=== PATIENT | male | born 1985 ===

== ENCOUNTER 2018-10-23 08:03 | Emergency (ER) | payer SELFPAY ==
[2018-10-23] MEDS ORDERED: KETOROLAC 30 MG/ML INJ ONE (08:28)
[2018-10-23] MEDS ORDERED: NA CHLORIDE 0.9% 1,000 ML ONE (08:28)
[2018-10-23 08:37] LABS: Absolute Lymphocytes (CBC) 1.2 K/uL (0.7-4.9); Absolute Monocytes 0.5 K/uL (0.1-1.3); Absolute Neutrophil 4.6 K/uL (1.8-8.0); Basophils % 0.7 % (0-1.3); Eosinophils % 2.1 % (0-4.4); Hematocrit 43.4 % (39.6-49.0); Lymphocytes % 18.2 % (15.3-44.8); MPV 6.6 fL (7.6-11.3); Monocytes % 7.6 % (3.3-12.3); RBC Red Blood Cell Count 4.72 M/uL (4.33-5.43)
[2018-10-23 08:48] LABS: ALT/SGPT 19 U/L (12-78); AST/SGOT 13 U/L (15-37); Albumin 3.7 g/dL (3.4-5.0); Alkaline Phosphatase 88 U/L (45-117); BUN Blood Urea Nitrogen 14 mg/dL (7-18); Bicarbonate 24 mmol/L (21-32); Bilirubin Direct 0.2 mg/dL (0-0.2); Bilirubin Total 0.8 mg/dL (0.2-1.0); Glucose Level 87 mg/dL (74-106); Potassium 4.1 mmol/L (3.5-5.1); Protein, Total 7.1 g/dL (6.4-8.2); Sodium Level 142 mmol/L (136-145)
--- NOTE | 2018-10-23 09:22 | RAD REPORT ---
EXAM DESCRIPTION: CT - Stone Protocol - 10/23/2018 8:35 am CLINICAL HISTORY: Right flank pain COMPARISON: None. TECHNIQUE: Axial 5 mm thick images were obtained without oral or IV contrast. The crtex-by-eypb span s the entirety of the system including uppermost abdomen and lung bases. All CT scans are performed using dose optimization technique as appropriate and may include automated exposure control or mA/KV adjustment according to patient size. FINDINGS: No hydronephrosis is present and no obstructing ureteral calculi. No suspicious renal mass es. Isodense masses and pyelonephritis are not excluded on a stone protocol CT scan. No urinary bladd er suspicious finding. No significant adrenal finding. Imaged portions of the liver, spleen and pancreas show no suspicious findings on non-contrast imaging . No gallbladder or biliary tree abnormality identified. No suspicious bowel findings. Moderate stool volume present in the colon. No hernia, mass or bulky lymphadenopathy noted. No free air, free fluid or inflammatory stranding. No significant bony abnormality. IMPRESSION: Negative CT stone protocol study. Isodense masses and pyelonephritis are not excluded on stone protocol technique.
--- NOTE | 2018-10-23 09:31 | ER ---
Nurse's Notes [facility] Name: Trace Garza Age: 33 yrs Sex: Male : 1985 Arrival Date: 10/23/2018 Time: 08:05 Bed 5 Private MD: Diagnosis: Low back pain;Constipation Presentation: 10/23 08:05 Presenting complaint: Patient states: Pt arrived in police custody, c/o R flank pain ph that began last night, also reports bloody stools and blood in urine, denies N/V or fever. Transition of care: patient was not received from another setting of care. Onset of symptoms was October 23, 2018. Risk Assessment: Do you want to hurt yourself or someone else? Patient reports no desire to harm self or others. Initial Sepsis Screen: Does the patient meet any 2 criteria? No. Patient's initial sepsis screen is negative. Does the patient have a suspected source of infection? No. Patient's initial sepsis screen is negative. Care prior to arrival: None. 08:05 Method Of Arrival: Law Enforcement: [employer] ph 08:05 Acuity: YAKELIN 3 ph Historical: - Allergies: 08:12 No Known Allergies; ph - PMHx: 08:12 Anxiety; ph - PSHx: 08:12 None; ph - Immunization history:: Adult Immunizations unknown. - Social history:: Smoking status: Patient uses tobacco products, smokes one pack cigarettes per day. - Ebola Screening: : No symptoms or risks identified at this time. Screenin:13 Abuse screen: Denies threats or abuse. Denies injuries from another. Nutritional ph screening: No deficits noted. Tuberculosis screening: No symptoms or risk factors identified. Fall Risk None identified. Assessment: 08:28 General: Appears in no apparent distress. uncomfortable, Behavior is cooperative, ph anxious, fussy, restless, Denies fever. Pain: Complains of pain in right low back Pain radiates to right lower quadrant Noted to be grimacing, guarding, restless. Neuro: Level of Consciousness is awake, alert, obeys commands, Oriented to person, place, time, situation. Cardiovascular: Capillary refill < 3 seconds in bilateral fingers Patient's skin is warm and dry. Respiratory: Airway is patent Respiratory effort is even, unlabored, Respiratory pattern is regular, symmetrical. GI: Reports lower abdominal pain, bloody stool, Patient currently denies diarrhea, nausea, vomiting. : Reports blood in urine Denies burning with urination, inability to void. Derm: Skin is intact, Skin is pink, warm \T\ dry. Musculoskeletal: Circulation, motion, and sensation intact. Range of motion: intact in all extremities. 08:33 Reassessment: Pt taken to CT via wheelchair, accompanied by PD. ph 09:30 Reassessment: Patient appears in no apparent distress at this time. Patient and/or ph family updated on plan of care and expected duration. Pain level reassessed. Patient is alert, oriented x 3, equal unlabored respirations, skin warm/dry/pink. 10:26 Reassessment: Patient appears in no apparent distress at this time. Patient and/or ph family updated on plan of care and expected duration. Pain level reassessed. Patient is alert, oriented x 3, equal unlabored respirations, skin warm/dry/pink. Pt d/c in police custody. Vital Signs: 08:09 BP 127 / 84; Pulse 89; Resp 18; Temp 98.5; Pulse Ox 100% on R/A; Weight 74.84 kg; ph Height 5 ft. 6 in. (167.64 cm); Pain 6/10; 09:30 BP 141 / 78; Pulse 84; Resp 16; Pulse Ox 98% on R/A; ph 10:28 BP 137 / 89; Pulse 87; Resp 18; Temp 98.0; Pulse Ox 99% on R/A; ph 08:09 Body Mass Index 26.63 (74.84 kg, 167.64 cm) ph ED Course: 08:05 Patient arrived in ED. ph 08:05 Jimmy Corrigan NP is PHCP. pm1 08:05 Milton Mayen MD is Attending Physician. pm1 08:07 Triage completed. ph 08:13 Arm band placed on. ph 08:13 Patient has correct armband on for positive identification. Bed in low position. Call ph light in reach. Side rails up X 1. Pulse ox on. NIBP on. 08:20 Inserted saline lock: 18 gauge in right forearm, using aseptic technique. ph 08:33 No provider procedures requiring assistance completed. ph 08:36 CT Stone Protocol In Process Unspecified. EDMS 08:41 CT completed. Patient tolerated procedure well. Patient moved back from CT. sj 10:25 Paige Stone, RN is Primary Nurse. ph 10:27 IV discontinued, intact, bleeding controlled, No redness/swelling at site. Pressure ph dressing applied. Administered Medications: 08: Drug: NS 0.9% 1000 ml Route: IV; Rate: 1000 ml; Site: right forearm; ph 10:27 Follow up: Response: No adverse reaction; IV Status: Completed infusion; IV Intake: ph 1000ml 08: Drug: TORadol 30 mg Route: IVP; Site: right forearm; ph 09:00 Follow up: Response: No adverse reaction; Pain is decreased ph Intake: 10:27 IV: 1000ml; Total: 1000ml. ph Outcome: :30 Discharge ordered by . pm1 10: Discharged to Law Enforcement ph 10: Condition: good 10: Discharge instructions given to patient, Instructed on discharge instructions, follow up and referral plans. medication usage, Demonstrated understanding of instructions, follow-up care, medications, Prescriptions given X 2. 10:28 Patient left the ED. hb Signatures: Dispatcher [employer] Eva Beckman Paige Stone, RN RN ph Jimmy Corrigan, [employer] NURSE [employer] pm1 Dara Zarate RN RN hb
--- NOTE | 2018-10-23 09:31 | EDPHYS ---
Physician Documentation [facility] Name: Trace Garza Age: 33 yrs Sex: Male : 1985 Arrival Date: 10/23/2018 Time: 08:05 Bed 5 Private MD: ED Physician Milton Mayen HPI: 10/23 08:15 This 33 yrs old Male presents to ER via Law Enforcement with complaints of Flank Pain. pm1 08:15 The patient complains of pain in the right low back. The pain does not radiate. Onset: pm1 The symptoms/episode began/occurred today, a few hours ago after being arrested by police . Modifying factors: The symptoms are alleviated by nothing. the symptoms are aggravated by nothing. Associated signs and symptoms: Pertinent positives: constipation, Pertinent negatives: diarrhea, dysuria, fever, nausea, vomiting. Severity of pain: in the emergency department the pain is actually worse. The patient has not experienced similar symptoms in the past. The patient has been recently seen by a physician: the patient's primary care provider, given prescription refill for his anxiety medications. Patient was at the hospital visiting his son and was arrested for unpaid tickets. He started experiencing right lower back pain and reported hematuria. Had labs drawn and was discharged to the officers. No CT performed and patient believes that he might have kidney stones. Historical: - Allergies: 08:12 No Known Allergies; ph - PMHx: 08:12 Anxiety; ph - PSHx: 08:12 None; ph - Immunization history:: Adult Immunizations unknown. - Social history:: Smoking status: Patient uses tobacco products, smokes one pack cigarettes per day. - Ebola Screening: : No symptoms or risks identified at this time. ROS: 08:15 Constitutional: Negative for fever, chills, and weight loss, Eyes: Negative for injury, pm1 pain, redness, and discharge, ENT: Negative for injury, pain, and discharge, Neck: Negative for injury, pain, and swelling, Cardiovascular: Negative for chest pain, palpitations, and edema, Respiratory: Negative for shortness of breath, cough, wheezing, and pleuritic chest pain, Abdomen/GI: Negative for abdominal pain, nausea, vomiting, diarrhea, and constipation. 08:15 MS/Extremity: Negative for injury and deformity, Skin: Negative for injury, rash, and discoloration, Neuro: Negative for headache, weakness, numbness, tingling, and seizure. 08:15 Back: Positive for flank pain, on the right. 08:15 : Positive for hematuria, Negative for burning with urination, difficulty urinating, penile pain, testicular pain Exam: 08:15 Constitutional: This is a well developed, well nourished patient who is awake, alert, pm1 and in no acute distress. Head/Face: Normocephalic, atraumatic. Eyes: Pupils equal round and reactive to light, extra-ocular motions intact. Lids and lashes normal. Conjunctiva and sclera are non-icteric and not injected. Cornea within normal limits. Periorbital areas with no swelling, redness, or edema. ENT: Nares patent. No nasal discharge, no septal abnormalities noted. Tympanic membranes are normal and external auditory canals are clear. Oropharynx with no redness, swelling, or masses, exudates, or evidence of obstruction, uvula midline. Mucous membranes moist. Neck: Trachea midline, no thyromegaly or masses palpated, and no cervical lymphadenopathy. Supple, full range of motion without nuchal rigidity, or vertebral point tenderness. No Meningismus. Chest/axilla: Normal chest wall appearance and motion. Nontender with no deformity. No lesions are appreciated. Cardiovascular: Regular rate and rhythm with a normal S1 and S2. No gallops, murmurs, or rubs. Normal PMI, no JVD. No pulse deficits. Respiratory: Lungs have equal breath sounds bilaterally, clear to auscultation and percussion. No rales, rhonchi or wheezes noted. No increased work of breathing, no retractions or nasal flaring. Abdomen/GI: Soft, non-tender, with normal bowel sounds. No distension or tympany. No guarding or rebound. No evidence of tenderness throughout. Back: No spinal tenderness. No costovertebral tenderness. Full range of motion. Skin: Warm, dry with normal turgor. Normal color with no rashes, no lesions, and no evidence of cellulitis. MS/ Extremity: Pulses equal, no cyanosis. Neurovascular intact. Full, normal range of motion. 08:15 Neuro: Orientation: is normal, Motor: is normal, moves all fours, strength is normal, strength is 5/5 in all extremities. Vital Signs: 08:09 BP 127 / 84; Pulse 89; Resp 18; Temp 98.5; Pulse Ox 100% on R/A; Weight 74.84 kg; ph Height 5 ft. 6 in. (167.64 cm); Pain 6/10; 09:30 BP 141 / 78; Pulse 84; Resp 16; Pulse Ox 98% on R/A; ph 10:28 BP 137 / 89; Pulse 87; Resp 18; Temp 98.0; Pulse Ox 99% on R/A; ph 08:09 Body Mass Index 26.63 (74.84 kg, 167.64 cm) ph MDM: 08:05 Patient medically screened. pm1 09:29 Data reviewed: vital signs. Data interpreted: Pulse oximetry: on room air is 100 %. pm1 Interpretation: normal. Counseling: I had a detailed discussion with the patient and/or guardian regarding: the historical points, exam findings, and any diagnostic results supporting the discharge/admit diagnosis, lab results, radiology results, the need for outpatient follow up, to return to the emergency department if symptoms worsen or persist or if there are any questions or concerns that arise at home. 10/23 08:07 Order name: Basic Metabolic Panel; Complete Time: 08:53 pm1 10/23 08:07 Order name: CBC with Diff; Complete Time: 08:42 pm1 10/23 08:07 Order name: Hepatic Function; Complete Time: 08:53 pm1 10/23 08:07 Order name: CT Stone Protocol; Complete Time: 09:28 pm1 10/23 10:16 Order name: Urine Dipstick--Ancillary (enter results) eb 10/23 08:07 Order name: IV Saline Lock; Complete Time: 08:26 pm1 10/23 08:07 Order name: Labs collected and sent; Complete Time: 08:26 pm1 10/23 08:07 Order name: Urine Dipstick-Ancillary (obtain specimen); Complete Time: 10:28 pm1 Administered Medications: 08: Drug: NS 0.9% 1000 ml Route: IV; Rate: 1000 ml; Site: right forearm; ph 10:27 Follow up: Response: No adverse reaction; IV Status: Completed infusion; IV Intake: ph 1000ml 08: Drug: TORadol 30 mg Route: IVP; Site: right forearm; ph 09:00 Follow up: Response: No adverse reaction; Pain is decreased ph Disposition: 15:27 Co-signature as Attending Physician, Milton Mayen MD I agree with the assessment and kdr plan of care. Disposition: 10/23/18 09:30 Discharged to Home. Impression: Constipation, Low back pain. - Condition is Stable. - Discharge Instructions: Abdominal Pain, Adult, Back Pain, Adult, Constipation, Adult. - Prescriptions for Miralax 17 gram/dose Oral - take 1 packet by ORAL route once daily As needed dilute powder in 8 ounces of water or juice; 7 packet. Diclofenac Sodium 75 mg Oral Tablet Sustained Release - take 1 tablet by ORAL route 2 times per day; 30 tablet. - Medication Reconciliation Form, Thank You Letter, Antibiotic Education, Prescription Opioid Use form. - Follow up: Emergency Department; When: As needed; Reason: Worsening of condition. Follow up: Private Physician; When: 2 - 3 days; Reason: Recheck today's complaints, Continuance of care, Re-evaluation by your physician. - Problem is new. - Symptoms have improved. Signatures: Dispatcher [employer] EDMS Milton Mayen MD MD [facility] Paige Stone RN RN ph Jimmy Corrigan, [employer] MANUFACTURING ENGINEER [employer] pm1 Dara Zarate RN RN Corrections: (The following items were deleted from the chart) 10:15 09:30 10/23/2018 09:30 Discharged to Home. Impression: Low back pain. Condition is pm1 Stable. Forms are Medication Reconciliation Form, Thank You Letter, Antibiotic Education, Prescription Opioid Use. Follow up: Emergency Department; When: As needed; Reason: Worsening of condition. Follow up: Private Physician; When: 2 - 3 days; Reason: Recheck today's complaints, Continuance of care, Re-evaluation by your physician. Problem is new. Symptoms have improved. pm1 10:28 10:15 10/23/2018 09:30 Discharged to Home. Impression: ConstipationLow back pain. hb Condition is Stable. Discharge Instructions: Abdominal Pain, Adult, Back Pain, Adult, Constipation, Adult. Prescriptions for Miralax 17 gram/dose Oral - take 1 packet by ORAL route once daily As needed dilute powder in 8 ounces of water or juice; 7 packet, Diclofenac Sodium 75 mg Oral Tablet Sustained Release - take 1 tablet by ORAL route 2 times per day; 30 tablet. and Forms are Medication Reconciliation Form, Thank You Letter, Antibiotic Education, Prescription Opioid Use. Follow up: Emergency Department; When: As needed; Reason: Worsening of condition. Follow up: Private Physician; When: 2 - 3 days; Reason: Recheck today's complaints, Continuance of care, Re-evaluation by your physician. Problem is new. Symptoms have improved. pm1
[2018-10-23 13:59] LABS: Urine Blood NEGATIVE (NEG); Urine Glucose NEGATIVE (NEG); Urine Protein NEGATIVE (NEG); Urine Specific Gravity 1.025 (1.005-1.030); Urine pH 6.5 (5.0-7.0)
== END 2018-10-23 10:28 | disposition home or self-care (01) ==
LOC: ER 08:03
DX: M54.5 Low back pain (principal); K59.00 Constipation, unspecified; F41.9 Anxiety disorder, unspecified; F17.210 Nicotine dependence, cigarettes, uncomplicated
CPT/HCPCS: 36415; 74176; 76377; 80048; 80076; 81003; 85025; 96361; 96374; 99284; J7030

== ENCOUNTER 2018-10-23 12:19 | Emergency (ER) | payer SELFPAY ==
[2018-10-23] MEDS ORDERED: BUSPIRONE HCL 15 MG TABLET PO ONE (13:00)
--- NOTE | 2018-10-23 14:24 | RAD REPORT ---
EXAM DESCRIPTION: RAD - Hand Right 3 View - 10/23/2018 1:42 pm CLINICAL HISTORY: Right hand pain, blunt force trauma COMPARISON: None. FINDINGS: No fracture confirmed on this study. Fifth metacarpal has a normal appearance. There is no dislocation or periosteal reaction noted. Soft tissue swelling over the dorsum of the hand noted. N o foreign body or air in the soft tissues. IMPRESSION: No fracture or acute bone or joint finding seen.
--- NOTE | 2018-10-23 14:43 | ER ---
Nurse's Notes [facility] Name: Trace Garza Age: 33 yrs Sex: Male : 1985 Arrival Date: 10/23/2018 Time: 12:20 Bed 6 Private MD: Diagnosis: Sprain of other part of wrist and hand Presentation: 10/23 12:21 Presenting complaint: Mental Health Officer. Transition of care: patient was not ph received from another setting of care. Onset of symptoms was October 23, 2018. Risk Assessment: Do you want to hurt yourself or someone else? Patient reports no desire to harm self or others. Initial Sepsis Screen: Does the patient meet any 2 criteria? No. Patient's initial sepsis screen is negative. Does the patient have a suspected source of infection? No. Patient's initial sepsis screen is negative. Care prior to arrival: None. 12:21 Method Of Arrival: Law Enforcement: Lauren BISHOP ph 12:21 Acuity: YAKELIN 3 ph 12:25 Presenting complaint: Pt in custody of [place] PD, found in cell, pt reports experiencing ph severe anxiety and stated to mental health office that he was afraid that he harm himself w/ out his psychiatric/anxiety medications while in [facility], pt then witnessed to have an anxiety attack and punched wall w/ R fist, deformity noted to hand, pt denies suicidal or homicidal ideations at this time. Historical: - Allergies: 12:25 No Known Allergies; ph - PMHx: 12:25 Anxiety; ph - PSHx: 12:25 None; ph - Immunization history:: Adult Immunizations unknown. - Social history:: Smoking status: unknown. - Ebola Screening: : No symptoms or risks identified at this time. Screenin:29 Abuse screen: Denies threats or abuse. Denies injuries from another. Nutritional ph screening: No deficits noted. Tuberculosis screening: No symptoms or risk factors identified. Fall Risk None identified. Assessment: 12:30 General: Appears in no apparent distress. uncomfortable, Behavior is cooperative, ph anxious, restless. Pain: Complains of pain in right hand. Neuro: Level of Consciousness is awake, alert, obeys commands, Oriented to person, place, time, situation, tardive dyskinesia noted. Cardiovascular: Capillary refill < 3 seconds in bilateral fingers Patient's skin is warm and dry. Respiratory: Airway is patent Respiratory effort is even, unlabored, Respiratory pattern is regular, symmetrical. GI: No signs and/or symptoms were reported involving the gastrointestinal system. Derm: Skin is healthy with good turgor, Skin is normal, Bruising that is dark purple, on right hand. Musculoskeletal: Circulation, motion, and sensation intact. Range of motion: intact in all extremities, Swelling present in right hand. 13:00 Reassessment: Patient appears in no apparent distress at this time. Patient and/or ph family updated on plan of care and expected duration. Pain level reassessed. Patient is alert, oriented x 3, equal unlabored respirations, skin warm/dry/pink. Pt provided lunch tray, eating food and tolerating well. 13:45 Reassessment: Patient appears in no apparent distress at this time. Patient and/or ph family updated on plan of care and expected duration. Pain level reassessed. Patient is alert, oriented x 3, equal unlabored respirations, skin warm/dry/pink. Pt resting quietly, tremors and anxiety noted to have improved, states, " I feel so much better after eating." Awaiting medications from pharmacy and xray results. 14:45 Reassessment: Patient appears in no apparent distress at this time. Patient and/or ph family updated on plan of care and expected duration. Pain level reassessed. Patient is alert, oriented x 3, equal unlabored respirations, skin warm/dry/pink. Vital Signs: 12:22 BP 138 / 92; Pulse 66; Resp 22; Temp 98.0; Pulse Ox 98% on R/A; Weight 74.84 kg; Height ph 5 ft. 6 in. (167.64 cm); 13:00 BP 115 / 78; Pulse 74; Resp 18; Pulse Ox 98% on R/A; ph 14:06 BP 110 / 66; Pulse 82; Resp 18; Temp 97.9(O); Pulse Ox 99% on R/A; mh5 12:22 Body Mass Index 26.63 (74.84 kg, 167.64 cm) ph ED Course: 12:20 Patient arrived in ED. ph 12:21 Paige Stone RN is Primary Nurse. ph 12:22 Triage completed. ph 12:24 Rip Russell PA is PHCP. [facility] 12:24 Milton Mayen MD is Attending Physician. jmm 12:30 Patient has correct armband on for positive identification. Bed in low position. Call ph light in reach. Side rails up X 1. Pulse ox on. NIBP on. Warm blanket given. 12:30 Arm band placed on Patient placed in an exam room, on a stretcher. ph 13:39 X-ray completed. Portable x-ray completed in exam room. Patient tolerated procedure mh1 well. 13:42 Hand Right 3 View XRAY In Process Unspecified. EDMS 14:42 Dejon Ashby MD is Referral Physician. jmm 15:15 No provider procedures requiring assistance completed. Patient did not have IV access ph during this emergency room visit. Administered Medications: 13:29 Drug: busPIRone 7.5 mg Route: PO; ph 15:18 Follow up: Response: No adverse reaction ph Outcome: 14:43 Discharge ordered by MD. jmm 15:15 Discharged to home ambulatory. ph 15:15 Condition: good 15:15 Discharge instructions given to patient, Instructed on discharge instructions, follow up and referral plans. Demonstrated understanding of instructions, follow-up care. 15:19 Patient left the ED. ph Signatures: Dispatcher [employer] EDMS Rip Russell PA PA Itzel Rudolph 1 Paige Stone RN RN ph Kenisha Liang 5
--- NOTE | 2018-10-23 14:43 | EDPHYS ---
Physician Documentation [facility] Name: Trace Garza Age: 33 yrs Sex: Male : 1985 Arrival Date: 10/23/2018 Time: 12:20 Bed 6 Private MD: ED Physician Milton Mayen HPI: 10/23 12:33 This 33 yrs old Male presents to ER via [employer] with complaints of Wrist Injury.jmm 12:33 Onset: The symptoms/episode began/occurred acutely, just prior to arrival. Modifying jmm factors: The symptoms are alleviated by ice/coldpack to affected area, the symptoms are aggravated by movement. Associated signs and symptoms: Pertinent negatives: fever. This is a 33 year old male with a history of anxiety that presents to the ED with complaints of pain to his right hand. Patient states he punched a wall during an anxiety attack. Patient denies HI or SI. . Historical: - Allergies: 12:25 No Known Allergies; ph - PMHx: 12:25 Anxiety; ph - PSHx: 12:25 None; ph - Immunization history:: Adult Immunizations unknown. - Social history:: Smoking status: unknown. - Ebola Screening: : No symptoms or risks identified at this time. ROS: 12:33 Constitutional: Negative for fever, chills, and weight loss, Cardiovascular: Negative jmm for chest pain, palpitations, and edema, Respiratory: Negative for shortness of breath, cough, wheezing, and pleuritic chest pain. 12:33 MS/extremity: Positive for pain, swelling. 12:33 All other systems are negative. Exam: 12:33 Head/Face: atraumatic. Eyes: EOMI, no conjunctival erythema appreciated ENT: Moist jmm Mucus Membranes Neck: Trachea midline, Supple Chest/axilla: Normal chest wall appearance and motion. Cardiovascular: Regular rate and rhythm. No edema appreciated Respiratory: Normal respirations, no respiratory distress appreciated Abdomen/GI: Non distended, soft 12:33 Constitutional: The patient appears alert, awake, anxious, uncomfortable. 12:33 Musculoskeletal/extremity: swelling is appreciated to the right hand, no snuff box tenderness, from is appreciated against resistance, full radial pulse, < 2 sec dist cap refill, NVI. 12:33 Skin: Appearance: Color: normal in color. 12:33 Neuro: Orientation: is normal, Mentation: is normal, Memory: is normal. 12:33 Psych: Behavior/mood is pleasant, cooperative. Vital Signs: 12:22 BP 138 / 92; Pulse 66; Resp 22; Temp 98.0; Pulse Ox 98% on R/A; Weight 74.84 kg; Height ph 5 ft. 6 in. (167.64 cm); 13:00 BP 115 / 78; Pulse 74; Resp 18; Pulse Ox 98% on R/A; ph 14:06 BP 110 / 66; Pulse 82; Resp 18; Temp 97.9(O); Pulse Ox 99% on R/A; mh5 12:22 Body Mass Index 26.63 (74.84 kg, 167.64 cm) ph MDM: 12:33 Patient medically screened. [facility] 14:42 Data reviewed: vital signs, nurses notes. Counseling: I had a detailed discussion with sriram the patient and/or guardian regarding: the historical points, exam findings, and any diagnostic results supporting the discharge/admit diagnosis, radiology results, the need for outpatient follow up, to return to the emergency department if symptoms worsen or persist or if there are any questions or concerns that arise at home. 14:42 ED course: xray negative. patient advised to repeat xray if pain continue after 1 week. sriram . 10/23 12:34 Order name: Hand Right 3 View XRAY; Complete Time: 14:42 [facility] Administered Medications: 13:29 Drug: busPIRone 7.5 mg Route: PO; ph 15:18 Follow up: Response: No adverse reaction ph Disposition: 15:26 Co-signature as Attending Physician, Milton Mayen MD I agree with the assessment and kdr plan of care. Disposition: 10/23/18 14:43 Discharged to Home. Impression: Sprain of other part of wrist and hand. - Condition is Stable. - Discharge Instructions: Intermetacarpal Sprain. - Prescriptions for Ibuprofen 800 mg Oral Tablet - take 1 tablet by ORAL route every 8 hours As needed take with food; 30 tablet. - Medication Reconciliation Form, Thank You Letter, Antibiotic Education, Prescription Opioid Use form. - Follow up: Dejon Ashby MD; When: 2 - 3 days; Reason: Recheck today's complaints, Continuance of care, Re-evaluation by your physician. Signatures: Dispatcher [employer] Milton Reed MD MD kdr Mickail, Joel, PA PA jmm Hall, Patricia RN RN ph Corrections: (The following items were deleted from the chart) 15:19 14:43 10/23/2018 14:43 Discharged to Home. Impression: Sprain of other part of wrist ph and hand. Condition is Stable. Forms are Medication Reconciliation Form, Thank You Letter, Antibiotic Education, Prescription Opioid Use. Follow up: Dejon Ashby; When: 2 - 3 days; Reason: Recheck today's complaints, Continuance of care, Re-evaluation by your physician. sriram
== END 2018-10-23 15:19 | disposition home or self-care (01) ==
LOC: ER 12:19
DX: S63.501A Unspecified sprain of right wrist, initial encounter (principal); W22.8XXA Striking against or struck by other objects, initial encounter; F41.9 Anxiety disorder, unspecified
CPT/HCPCS: 99283